=== PATIENT | male | born 1965 | race Caucasian/White ===

== ENCOUNTER 2024-04-20 07:01 | Day surgery (SDC) | payer MEDICARE, SELFPAY ==
[2024-04-20] VITALS (8 sets, daily range): BP systolic 151–190; BP diastolic 74–84; BMI 25.7
[2024-04-20 12:09] LABS: Glucose - Point of Care 146 mg/dl (70-99)
[2024-04-20] MEDS: TYLENOL 1000 MG PO (12:11)
[2024-04-20] MEDS: CELEBREX 200 MG PO (12:11)
[2024-04-20 12:23] LABS: % Basophils 1.5 % (0-2); % Immature Granulocytes 0.4 % (0-0.5); % Lymphocytes 15.6 % (20.5-51.1); % Monocytes 9.2 % (1.7-9.3); % Neutrophils 66.3 % (42.2-75.2); Absolute Basophils 0.1 10^3/uL (0-0.2); Absolute Eosinophils 0.4 10^3/uL (0-0.7); Absolute Lymphocytes 0.9 10^3/uL (1.2-3.4); Absolute Monocytes 0.5 10^3/uL (0.1-0.6); Absolute Neutrophils 3.6 10^3/uL (1.4-6.5); Hematocrit 31.5 % (39.0-52.0); Hemoglobin 10.4 g/dL (13.0-18.0); Mean Corpuscular Hgb 29.4 pg (27.0-31.0); Mean Platelet Volume 10.2 fL (7.4-10.4); Nucleated Red Blood Cells % 0 % (-); Platelet Count 189 10^3/uL (130-400); Red Blood Cell Count 3.54 10^6/uL (4.70-6.10); Red Cell Dist. Width 13.4 % (11.5-14.5); White Blood Cell Count 5.5 10^3/uL (4.8-10.8)
[2024-04-20 12:50] LABS: Blood Urea Nitrogen 51 mg/dl (9-20); Calcium 8.1 mg/dl (8.4-10.2); Carbon Dioxide 21 mmol/L (22-30); Chloride 105 mmol/L (98-107); Estimated Creatinine Clearance 17 ml/min; Glucose 143 mg/dl (70-99); Sodium 134 mmol/L (135-145); eGFR 12.27
[2024-04-20 12:58] LABS: Potassium 4.4 mmol/L (3.5-5.1)
[2024-04-20 16:01] LABS: Glucose - Point of Care 115 mg/dl (70-99)
== END 2024-04-20 16:54 | disposition home or self-care (01) ==
LOC: SDS 07:01
PROVIDERS: Student in an Organized Health Care Education/Training Program; ATTENDING PHYSICIAN Orthopaedic Surgery Hand Surgery
PROC: 0PSJ04Z Reposition Left Radius with Internal Fixation Device, Open Approach (ICD-10-PCS; 2024-04-20)
DX: S52.572A Other intraarticular fracture of lower end of left radius, initial encounter for closed fracture (principal); W11.XXXA Fall on and from ladder, initial encounter
CPT/HCPCS: 25609; 80048; 82962; 85025; 93005